=== PATIENT | female | born 1935 | race Caucasian/White ===

== ENCOUNTER 2020-09-08 13:45 | Observation (INO) ==
[2020-09-08 14:38] LABS: Basophils # 0.1 K/mcL (0.0-0.2); Basophils % 0.8 %; Eosinophils # 0.1 K/mcL (0.0-0.6); Eosinophils % 0.7 %; Hematocrit 45.1 % (35.3-44.9); Hemoglobin 14.2 g/dL (11.5-15.4); Immature Granulocytes % 0.5 % (0-4); Lymphocytes % 40.4 %; Mean Corpuscular HGB Conc 31.5 g/dL (31.6-35.5); Mean Corpuscular Hemoglobin 33.1 pg (28.0-33.3); Mean Corpuscular Volume 105.1 fL (83.0-100.0); Mean Platelet Volume 11.4 fL (9.4-12.4); Monocytes # 0.6 K/mcL (0.0-1.3); Monocytes % 8.7 %; Neutrophils # 3.6 K/mcL (1.6-8.9); Platelet Count 150 K/mcL (140-400); Red Blood Count 4.29 M/mcL (3.82-4.97); Red Cell Distribution Width 13.7 % (11.5-14.5); Segmented Neutrophils % 48.9 %; White Blood Count 7.4 K/mcL (4.3-11.1)
[2020-09-08 14:46] LABS: Activated Partial Thrombo Time 46.2 Seconds (26.0-36.0)
[2020-09-08 14:51] LABS: Troponin I 0.16 ng/mL (< 0.04)
[2020-09-08 14:58] LABS: INR 5.4; Prothrombin Time 59.3 Seconds (9.4-12.1)
[2020-09-08 15:05] LABS: Calcium 9.7 mg/dL (8.6-10.3); Magnesium 2.6 mg/dL (1.6-2.6); Phosphorous 6.4 mg/dL (2.7-4.5); Potassium 5.5 mEq/L (3.5-5.1)
[2020-09-08] MEDS ORDERED: 0.9 % Sodium Chloride 500 ML IVC ONE (15:11)
[2020-09-08] MEDS ORDERED: Calcium Gluconate 1gm/50mL 1 GM/50 ML BAG IVPB ONE (15:11)
[2020-09-08] MEDS ORDERED: Albuterol 2.5 MG/3 ML NEBULIZER IH ONE (15:12)
[2020-09-08] MEDS ORDERED: 0.9 % Sodium Chloride 1,000 ML IVC SCH ×2 (15:15→16:59)
[2020-09-08] MEDS ORDERED: Doxycycline 100 MG CAPSULE PO ONE (15:19)
[2020-09-08] MEDS ORDERED: Albuterol 2.5 MG/3 ML NEBULIZER ONE (15:42)
[2020-09-08 16:18] LABS: VBG HCO3 21 mEq/L (21-27); VBG PCO2 41 mmHg (41-51); VBG PH 7.32 pH Units (7.32-7.42); VBG PO2 206 mmHg (25-50)
[2020-09-08] MEDS ORDERED: Levalbuterol Neb 0.63 MG/3 ML IH PRN (17:07)
[2020-09-08] MEDS ORDERED: Acetaminophen 325 MG TABLET PO PRN (17:11)
[2020-09-08 21:46] LABS: Bacteria,Urine Few per hpf (None-Few); Bilirubin,Urine Negative (Negative); Blood,Urine Trace (Negative); Clarity,Urine Clear (Clear); Color,Urine Light-Yellow (Yellow); Glucose,Urine (UA) Normal (Normal); Hyaline Casts,Urine Few per lpf (None Seen); Ketones,Urine Negative (Negative); Leukocyte Esterase,Urine Negative (Negative); Mucus,Urine Few per lpf (None-Few); Nitrite,Urine Negative (Negative); Protein,Urine 50 mg/dL (Neg-Trace); RBC,Urine 0-3 per hpf (0-3); Specific Gravity,Urine 1.013 (1.010-1.025); Squamous Epithelial Cell,Urine Few per hpf (None-Few); Urobilinogen,Urine Normal (Normal); WBC,Urine 0-3 per hpf (0-3)
[2020-09-09] MEDS ORDERED: Doxycycline 100 MG in 0.9 % Sodium Chloride Mini Bag 100 ML IVPB SCH (05:00)
[2020-09-09 08:39] VITALS: BP 137/81
[2020-09-09 10:02] LABS: Basophils % 0.8 %; Eosinophils # 0.1 K/mcL (0.0-0.6); Hematocrit 36.6 % (35.3-44.9); Immature Granulocytes % 0.4 % (0-4); Lymphocytes # 1.5 K/mcL (0.6-4.6); Lymphocytes % 31.5 %; Mean Corpuscular HGB Conc 32.8 g/dL (31.6-35.5); Mean Corpuscular Volume 103.7 fL (83.0-100.0); Mean Platelet Volume 11.1 fL (9.4-12.4); Monocytes # 0.4 K/mcL (0.0-1.3); Monocytes % 7.2 %; Neutrophils # 2.8 K/mcL (1.6-8.9); Platelet Count 131 K/mcL (140-400); Red Blood Count 3.53 M/mcL (3.82-4.97); Red Cell Distribution Width 13.4 % (11.5-14.5); Segmented Neutrophils % 58.1 %; White Blood Count 4.9 K/mcL (4.3-11.1)
[2020-09-09 10:07] LABS: INR 3.9
[2020-09-09 10:14] LABS: Prothrombin Time 43.4 Seconds (9.4-12.1)
[2020-09-09 10:33] LABS: Calcium 8.6 mg/dL (8.6-10.3); Magnesium 2.2 mg/dL (1.6-2.6); Phosphorous 4.4 mg/dL (2.7-4.5); Potassium 4.6 mEq/L (3.5-5.1); Troponin I 0.1 ng/mL (< 0.04)
== END 2020-09-09 15:08 | disposition hospice, home (50) ==
LOC: CDU 13:45 → EMEROOARM 13:45 → SUATTDRO 17:50 → CDU 17:52
PROVIDERS: ADMIT Internal Medicine; ATTEND Internal Medicine

== ENCOUNTER 2021-02-03 10:02 | Inpatient (IN) ==
[2021-02-03] MEDS ORDERED: Acetaminophen 325 MG TABLET PO PRN (10:28)
[2021-02-03] MEDS ORDERED: *HR* OxyCODONE Immed Rel 5 MG TABLET PO PRN (10:33)
[2021-02-03 13:38] LABS: Influenza A PCR Negative (Negative); Influenza B PCR Negative (Negative); Resp. Syncytial Virus PCR Negative (Negative)
[2021-02-03 13:47] LABS: SARS-CoV-2 by PCR (In House) Positive (Negative)
[2021-02-03] MEDS: *HR* LORazepam 0.5 MG TABLET PO SCH (20:25)
[2021-02-04] MEDS: CarBAMazepine XR (12 hr) 100 MG TAB PO SCH (09:19)
[2021-02-04] MEDS: Furosemide 20 MG TABLET PO SCH (09:19)
[2021-02-04] MEDS: *HR* LORazepam 0.5 MG TABLET PO SCH (20:23)
[2021-02-05] MEDS: Furosemide 20 MG TABLET PO SCH (08:49)
[2021-02-05] MEDS: CarBAMazepine XR (12 hr) 100 MG TAB PO SCH (08:49)
[2021-02-05] MEDS: *HR* LORazepam 0.5 MG TABLET PO SCH (20:24)
[2021-02-06] MEDS: Furosemide 20 MG TABLET PO SCH (08:41)
[2021-02-06] MEDS: CarBAMazepine XR (12 hr) 100 MG TAB PO SCH (08:41)
[2021-02-06] MEDS: *HR* LORazepam 0.5 MG TABLET PO SCH (20:55)
[2021-02-07] MEDS: Furosemide 20 MG TABLET PO SCH (09:03)
[2021-02-07] MEDS: CarBAMazepine XR (12 hr) 100 MG TAB PO SCH (09:04)
[2021-02-07] MEDS: *HR* LORazepam 0.5 MG TABLET PO SCH (21:38)
[2021-02-08 07:45] VITALS: BP 119/82
[2021-02-08] MEDS: CarBAMazepine XR (12 hr) 100 MG TAB PO SCH (09:43)
[2021-02-08] MEDS: Furosemide 20 MG TABLET PO SCH (09:43)
== END 2021-02-08 13:24 | disposition hospice, home (50) | DRG 178 ==
LOC: 3BNU 12:05
PROVIDERS: ADMIT Internal Medicine Hospice and Palliative Medicine; ATTEND Internal Medicine Hospice and Palliative Medicine